=== PATIENT | male | born 1970 | race Caucasian/White ===

== ENCOUNTER 2017-10-25 15:04 | Emergency (ER) | payer BC, OTHER ==
[~2017-10-25 15:04] MED LIST: HYDROCODONE PO; Z.0.NO CURRENT MEDS
[2017-10-25] MEDS ORDERED: GADODIAMIDE PF 287 MG/ML 5 ML VIAL (for RAD MRI) IVCONTRAST ONE (15:05)
[2017-10-25 15:08] VITALS: BP 146/86; PULSE 65; RESP 15; TEMP 97.8; O2SAT 98
[2017-10-25 16:05] LABS: AUTOMATED NEUTROPHIL # 3.9 TH/MM3 (1.8-7.7); BASOPHIL % 0.5 % (0.0-2.0); EOSINOPHIL # 0.2 TH/MM3 (0-0.4); HEMATOCRIT 32.6 % (39.0-51.0); HEMOGLOBIN 11.6 GM/DL (13.0-17.0); LYMPH % 19.9 % (9.0-44.0); LYMPHOCYTE # 1.1 TH/MM3 (1.0-4.8); MEAN CELL VOLUME 96.3 FL (80.0-100.0); MEAN CORPUSCULAR HEMOGLOBIN 34.3 PG (27.0-34.0); MEAN CORPUSCULAR HGB CONC 35.6 % (32.0-36.0); MEAN PLATELET VOLUME 7.8 FL (7.0-11.0); MONOCYTE # 0.4 TH/MM3 (0-0.9); NEUT % 69.6 % (16.0-70.0); PLATELET COUNT 229 TH/MM3 (150-450); RED BLOOD COUNT 3.39 MIL/MM3 (4.50-5.90); RED CELL DISTRIBUTION WIDTH 12.2 % (11.6-17.2); WHITE BLOOD COUNT 5.6 TH/MM3 (4.0-11.0)
[2017-10-25 16:31] LABS: ALBUMIN 3.4 GM/DL (3.4-5.0); ALT (GPT) 23 U/L (12-78); AST (GOT) 34 U/L (15-37); BICARBONATE 27.1 MEQ/L (21.0-32.0); BLOOD UREA NITROGEN 11 MG/DL (7-18); CALCIUM 8.6 MG/DL (8.5-10.1); CHLORIDE 102 MEQ/L (98-107); CREATININE 0.82 MG/DL (0.60-1.30); GLOMERULAR FILTRATION RATE 101 ML/MIN (>89); GLUCOSE,RANDOM 103 MG/DL (74-106); SODIUM (NA) 135 MEQ/L (136-145)
[2017-10-25 16:33] LABS: ALKALINE PHOSPHATASE 59 U/L (45-117); TOTAL BILIRUBIN ADULT 0.7 MG/DL (0.2-1.0)
[2017-10-25 17:00] VITALS: BP 134/82; PULSE 62; RESP 16; O2SAT 98
--- NOTE | 2017-10-25 18:41 | RADRPT ---
EXAM DATE/TIME: 10/25/2017 18:03 [facility] COMPARISON: No previous studies available for comparison. INDICATIONS : Nerve disorder, tongue numb since shoulder surgery. MEDICAL HISTORY : None. SURGICAL HISTORY : Shoulder sx five days ago. ENCOUNTER: Initial ACUITY: 4-6 days PAIN SCORE: 3/10 LOCATION: tongue. TECHNIQUE: Multiplanar, multisequence MRI of the brain was performed without contrast. FINDINGS: CEREBRUM: The ventricles are normal for age. No evidence of midline shift, mass lesion, hemorrhage or acute in farction. No extraaxial fluid collections are seen. The pituitary gland and suprasellar cistern are normal in configuration. WHITE MATTER: No significant signal abnormalities are seen in the white matter. POSTERIOR FOSSA: The cerebellum and brainstem are intact. The 4th ventricle is midline. The cerebellopontine angle is unremarkable. The cerebellar tonsils are normal in position. DIFFUSION IMAGING: No focal areas of restricted diffusion are seen. No evidence of acute infarction. EXTRACRANIAL: The visualized portions of the orbits and paranasal sinuses are unremarkable. CONCLUSION: Normal examination. Wilian Gan MD on October 25, 2017 at 18:38 Board Certified Radiologist. This report was verified electronically.
--- NOTE | 2017-10-25 19:05 | RADRPT ---
EXAM DATE/TIME: 10/25/2017 18:03 [facility] COMPARISON: No previous studies available for comparison. INDICATIONS : Nerve disorder, tongue numb since shoulder surgery five days ago. MEDICAL HISTORY : None. SURGICAL HISTORY : Right shoulder sx. ENCOUNTER: Initial ACUITY: 4-6 days PAIN SCORE: 3/10 LOCATION: tongue. TECHNIQUE: Multiplanar, multisequence MRI examination of the cervical spine was performed. FINDINGS: VERTEBRAE: Normal vertebral body height. Homogeneous marrow signal. ALIGNMENT: No evidence of subluxation. CORD: Normal configuration and signal. POST FOSSA: The cerebellar tonsils are normal in position. C2-C3: The thecal sac has a normal configuration. There is no evidence of disc herniation or spinal canal s tenosis. The neural foramina are patent bilaterally. C3-C4: The thecal sac has a normal configuration. There is no evidence of disc herniation or spinal canal s tenosis. The neural foramina are patent bilaterally. C4-C5: The thecal sac has a normal configuration. There is no evidence of disc herniation or spinal canal s tenosis. The neural foramina are patent bilaterally. C5-C6: Broad mild dorsal disc protrusion mildly indenting thecal sac. Mild asymmetrically right-sided forami nal stenosis present. C6-C7: Small left paracentral disc protrusion slightly effacing left lateral recess. Canal and foramina sati sfactory. C7-T1: Bilateral uncovertebral osteophytic spurring producing bilateral foraminal stenosis, right worse than left. CONCLUSION: No acute bony findings. 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 This report was verified electronically.
--- NOTE | 2017-10-25 19:44 | PD ---
HPI Chief Complaint: Neuro Symptoms/ Deficits Time Seen by Provider: 15:18 Travel History International Travel<30 days: No Contact w/Intl Traveler<30days: No Traveled to known affect area: No History of Present Illness HPI Patient is a 47-year-old male who comes in complaining of inability to swallow and decreased taste to the left side of his tongue. He says this is been going on since he had shoulder replacement surgery last week. He says he had a nerve block at the time, and when he woke up from the surgery he told them he was having the symptoms and they told him it was likely secondary to the block and should wear off. He says it has not worn off since . He called his doctor who told him to come to the emergency department. He denies any other neurologic symptoms. He says he is able to swallow soft foods, but that is all. He denies any difficulty breathing. He has not taken anything for symptoms. Nothing seems to improve or worsen his symptoms. Severity is mild to moderate. PFSH Past Medical History Medical History: Denies Significant Hx Cancer: No Diabetes: No Diminished Hearing: No Hepatitis: No Hiatal Hernia: No Thyroid Disease: No Tetanus Vaccination: > 5 Years Influenza Vaccination: No Social History Alcohol Use: Yes ([facility]) Tobacco Use: No Substance Use: No Allergies-Medications (Allergen,Severity, Reaction): Coded Allergies: No Known Allergies (Unverified Adverse Reaction, Unknown, 10/25/17) Reported Meds & Prescriptions Reported Meds & Active Scripts Active Reported [Hydrocodone] 5 Mg PO Q4HPRN Review of Systems Except as stated in HPI: all other systems reviewed are Neg General / Constitutional: No: Fever, Chills Eyes: No: Blurred Vision HENT: No: Headaches, Lightheadedness Cardiovascular: No: Chest Pain or Discomfort Respiratory: No: Shortness of Breath Gastrointestinal: No: Nausea, Vomiting Musculoskeletal: No: Myalgias, Pain Skin: No Rash, No Change in Pigmentation Neurologic: No: Weakness, Dizziness Physical Exam Narrative GENERAL: Awake and alert, no acute distress. SKIN: Focused skin assessment warm/dry. No wounds or signs of infection. HEAD: Atraumatic. Normocephalic. EYES: Pupils equal and round. No scleral icterus. Extraocular movements intact. ENT: Mucous membranes pink and moist. Tongue is protruding to the left. NECK: Trachea midline. No JVD. CARDIOVASCULAR: Regular rate and rhythm. No murmur appreciated. RESPIRATORY: No accessory muscle use. Clear to auscultation. Breath sounds equal bilaterally. MUSCULOSKELETAL: No obvious deformities. No clubbing. No cyanosis. No edema. Sensation and strength intact on right hand. NEUROLOGICAL: Awake and alert. Motor grossly within normal limits. Normal speech. PSYCHIATRIC: Appropriate mood and affect; insight and judgment normal. Data Data Last Documented VS Orders Orders Iv Access Insert/Monitor (10/25/17 15:26) Complete Blood Count With Diff (10/25/17 15:26) Comprehensive Metabolic Panel (10/25/17 15:26) Mri C Spine W/O Contrast (10/25/17 ) Mri Brain W/O Contrast (10/25/17 ) Mri Brachial Plexus W&W/O Cont (10/25/17 ) Gadodiamide Pf Inj (Omniscan Pf Inj) (10/25/17 15:05) Shoulder, Limited(2vws) (10/25/17 ) Radiology Film Requests (10/26/17 ) Ed Discharge Order (10/26/17 00:23) Labs Laboratory Tests Test 10/25/17 15:20 White Blood Count 5.6 TH/MM3 Red Blood Count 3.39 MIL/MM3 Hemoglobin 11.6 GM/DL Hematocrit 32.6 % Mean Corpuscular Volume 96.3 FL Mean Corpuscular Hemoglobin 34.3 PG Mean Corpuscular Hemoglobin Concent 35.6 % Red Cell Distribution Width 12.2 % Platelet Count 229 TH/MM3 Mean Platelet Volume 7.8 FL Neutrophils (%) (Auto) 69.6 % Lymphocytes (%) (Auto) 19.9 % Monocytes (%) (Auto) 7.0 % Eosinophils (%) (Auto) 3.0 % Basophils (%) (Auto) 0.5 % Neutrophils # (Auto) 3.9 TH/MM3 Lymphocytes # (Auto) 1.1 TH/MM3 Monocytes # (Auto) 0.4 TH/MM3 Eosinophils # (Auto) 0.2 TH/MM3 Basophils # (Auto) 0.0 TH/MM3 CBC Comment DIFF FINAL Differential Comment Blood Urea Nitrogen 11 MG/DL Creatinine 0.82 MG/DL Random Glucose 103 MG/DL Total Protein 7.0 GM/DL Albumin 3.4 GM/DL Calcium Level 8.6 MG/DL Alkaline Phosphatase 59 U/L Aspartate Amino Transf (AST/SGOT) 34 U/L Alanine Aminotransferase (ALT/SGPT) 23 U/L Total Bilirubin 0.7 MG/DL Sodium Level 135 MEQ/L Potassium Level 3.9 MEQ/L Chloride Level 102 MEQ/L Carbon Dioxide Level 27.1 MEQ/L Anion Gap 6 MEQ/L Estimat Glomerular Filtration Rate 101 ML/MIN MDM Medical Decision Making Medical Screen Exam Complete: Yes Emergency Medical Condition: Yes Medical Record Reviewed: Yes Differential Diagnosis Brachial plexus injury versus cervical spine injury versus brain abnormality Narrative Course Patient is a 47-year-old male who comes in due to neurologic symptoms after shoulder surgery. Exam shows his tongue protruding to the left, he says he has difficulty swallowing. IV established, labs sent. Labs show no acute abnormalities. MRI of the brain and C-spine performed show no acute abnormalities. MRI of the brachial plexus performed. Patient signed out to Dr. Leos to follow-up results and disposition the patient. Zeina Andersen MD Oct 25, 2017 19:44
--- NOTE | 2017-10-25 21:42 | RADRPT ---
EXAM DATE/TIME: 10/25/2017 20:46 [facility] COMPARISON: No previous studies available for comparison. INDICATIONS : Evaluate right shoulder replacement. MEDICAL HISTORY : None. SURGICAL HISTORY : Right shoulder surgery. ENCOUNTER: Initial ACUITY: 3 days PAIN SCORE: 1/10 LOCATION: Right shoulder. FINDINGS: Total right shoulder arthroplasty is noted. Skin nic are present ventrally. There has been distal clavicular resection. The adjacent ribs. Tach. CONCLUSION: Recent shoulder surgery as above Wilian Gan MD on October 25, 2017 at 21:40 Board Certified Radiologist. This report was verified electronically.
--- NOTE | 2017-10-25 21:50 | PD ---
Physical Exam Narrative General: The patient is a well-developed well-nourished male in no acute distress. Head and Neck exam: Head is normocephalic atraumatic. Eyes: EOMI, pupils are equal round and reactive to light. Nose: Midline septum with pink mucous membranes Mouth: Dentition unremarkable. Moist mucus membranes. Posterior oropharynx is not erythematous. No tonsillar hypertrophy. Uvula midline. Airway patent. Patient's tongue deviates to the left. The patient reports having numbness to the left side of his tongue. No masses are visualized. No swelling underneath the tongue. Neck: No palpable lymphadenopathy. No nuchal rigidity. No thyromegaly. No tenderness on palpation of the submandibular area. Cardiovascular: Regular rate and rhythm without murmurs, gallops, or rubs. No pulse deficit to the extremities. Lungs: Clear to auscultation bilaterally. No wheezes, rhonchi, or rales. Abdomen: Soft, without tenderness to palpation in all 4 quadrants of the abdomen. No guarding, rebound, or rigidity. Negative [place] sign. Extremities: No clubbing, cyanosis, or edema. 2+ pulses in all 4 extremities. Back: No spinous process tenderness to palpation. No costovertebral angle tenderness to palpation. Neurologic Exam: Cranial nerves 2-12 were intact on exam. Strength is 5/5 in all 4 extremities. No sensory deficits noted. No dysdiadochokinesis. Good finger to nose and Heel to kim bilaterally. Skin Exam: No rash noted. Intact skin that is warm and dry. Data Data Last Documented VS Vital Signs Date Time Temp Pulse Resp B/P (MAP) Pulse Ox O2 Delivery O2 Flow Rate FiO2 10/25/17 17:00 62 16 134/82 (99) 98 Room Air 10/25/17 15:08 97.8 Orders Orders Iv Access Insert/Monitor (10/25/17 15:26) Complete Blood Count With Diff (10/25/17 15:26) Comprehensive Metabolic Panel (10/25/17 15:26) Mri C Spine W/O Contrast (10/25/17 ) Mri Brain W/O Contrast (10/25/17 ) Mri Brachial Plexus W&W/O Cont (10/25/17 ) Gadodiamide Pf Inj (Omniscan Pf Inj) (10/25/17 15:05) Shoulder, Limited(2vws) (10/25/17 ) Radiology Film Requests (10/26/17 ) Labs Laboratory Tests Test 10/25/17 15:20 White Blood Count 5.6 TH/MM3 Red Blood Count 3.39 MIL/MM3 Hemoglobin 11.6 GM/DL Hematocrit 32.6 % Mean Corpuscular Volume 96.3 FL Mean Corpuscular Hemoglobin 34.3 PG Mean Corpuscular Hemoglobin Concent 35.6 % Red Cell Distribution Width 12.2 % Platelet Count 229 TH/MM3 Mean Platelet Volume 7.8 FL Neutrophils (%) (Auto) 69.6 % Lymphocytes (%) (Auto) 19.9 % Monocytes (%) (Auto) 7.0 % Eosinophils (%) (Auto) 3.0 % Basophils (%) (Auto) 0.5 % Neutrophils # (Auto) 3.9 TH/MM3 Lymphocytes # (Auto) 1.1 TH/MM3 Monocytes # (Auto) 0.4 TH/MM3 Eosinophils # (Auto) 0.2 TH/MM3 Basophils # (Auto) 0.0 TH/MM3 CBC Comment DIFF FINAL Differential Comment Blood Urea Nitrogen 11 MG/DL Creatinine 0.82 MG/DL Random Glucose 103 MG/DL Total Protein 7.0 GM/DL Albumin 3.4 GM/DL Calcium Level 8.6 MG/DL Alkaline Phosphatase 59 U/L Aspartate Amino Transf (AST/SGOT) 34 U/L Alanine Aminotransferase (ALT/SGPT) 23 U/L Total Bilirubin 0.7 MG/DL Sodium Level 135 MEQ/L Potassium Level 3.9 MEQ/L Chloride Level 102 MEQ/L Carbon Dioxide Level 27.1 MEQ/L Anion Gap 6 MEQ/L Estimat Glomerular Filtration Rate 101 ML/MIN [facility] Medical Record Reviewed: Yes Supervised Visit with JEFF: No Interpretation(s) Last Impressions Shoulder X-Ray 10/25/17 0000 Signed Impressions: Service Date/Time: Wednesday, October 25, 2017 20:46 - CONCLUSION: Recent shoulder surgery as above Wilian Gan MD Cervical Spine MRI 10/25/17 0000 Signed Impressions: Service Date/Time: Wednesday, October 25, 2017 18:03 - CONCLUSION: No acute bony findings. Disc protrusions and bony spondylosis in the lower cervical spine with multilevel foraminal stenoses as described Wilian Gan MD Brain MRI 10/25/17 0000 Signed Impressions: Service Date/Time: Wednesday, October 25, 2017 18:03 - CONCLUSION: Normal examination. Wilian Gan MD Brachial Plexus MRI 10/25/17 0000 Signed Impressions: Service Date/Time: Wednesday, October 25, 2017 18:03 - CONCLUSION: Tissue asymmetry in the tongue base region. Left submandibular region asymmetry or mass. Recommend further evaluation with soft tissue CT examination of the neck with contrast on an elective basis. Wilian Gan MD Narrative Course During the course of the patient's emergency department visit, the patient's history, examination, and differential diagnosis were reviewed with the patient. The patient was placed on a senior relationship manager with oximetry and frequent blood pressure monitoring. The patient had IV access obtained and blood work sent for analysis. The patient's case was checked out to me by Dr. Andersen. Please see her complete history and physical. The patient's case was checked out to me at the conclusion of her shift pending an MRI of the brachial plexus. The patient presented with a recent history of shoulder replacement on at the [facility]. The patient underwent a cervical block for the procedure. The patient reported after the procedure noticing decreased taste, and difficulty swallowing hard foods. The patient is able to swallow his own secretions and swallow soft foods as well as liquids without coughing or choking. The patient was initially provided [-]. The patient's laboratory studies were reviewed and remarkable for [-]. Radiology studies were reviewed and remarkable for a shoulder x-ray that shows postoperative changes, no other acute abnormality. MRI of the brain shows a normal examination. MRI of the C-spine shows no acute bony findings, disc protrusions and bony spondylosis in the lower cervical spine with multilevel foraminal stenosis is noted. MRI of the brachial plexus reveals tissue asymmetry in the tongue base region. Left submandibular region asymmetry or mass. Recommend further evaluation with soft tissue CT examination of the neck with contrast on an elective basis. I discussed the patient's case further with him. The patient will be given an outpatient lab slip for a CT scan of the soft tissues of the neck with contrast to further evaluate the findings. A call has been placed out to the patient's surgeon at the [facility], Dr. Mccrary. The covering physician that will be calling back is Dr. Andrade. After all, I was connected with the patient's actual surgeon, , at approximately 12:10 AM. The patient's findings including examination findings, history, radiology were discussed with his physician. He recommended close follow-up as an outpatient. The patient is instructed that if he develops any worsening symptoms including coughing or choking with eating, difficulty swallowing his own secretions or soft foods, he should return back immediately. The patient is instructed to call his surgeon's office number in the morning to schedule a sooner follow-up appointment. The patient is resting comfortably and feels better, is alert and in no distress. The patient's results and examination findings were discussed with the patient. The repeat examination is unremarkable and benign. The history, exam, diagnostic testing, and current condition do not suggest any significant pathology to warrant further testing, continued ED treatment, admission, or surgical evaluation at this point. The vital signs have been stable. The patient does not have uncontrollable pain, intractable vomiting, or other significant symptoms. The patient's condition is stable and appropriate for discharge. The patient will pursue further outpatient evaluation with a primary care physician or other designated or consulting physician as indicated in the discharge instructions. The patient expressed understanding and was agreeable with this plan. Physician Communication Physician Communication The patient's case including history, pertinent physical examination findings, and laboratory studies were discussed with Dr. Mccrary, at 12:05AM. It was agreed that the patient will call his office in the morning for a sooner postoperative appointment. He agreed with the plan to have the CT scan of the soft tissues of the neck with contrast done as an outpatient. The patient will be given a copy of his images on CD to bring to his next office appointment along with his radiologic reports. Diagnosis Primary Impression: Numbness of tongue Additional Impression: Mass of left submandibular region Referrals: Orthopaedic Surgeon 1 day Patient Instructions: General Instructions Additional Instruction: The patient's case including history, pertinent physical examination findings, and laboratory studies were discussed with Dr. Mccrary, at 12:05AM. It was agreed that the patient will call his office in the morning for a sooner postoperative appointment. He agreed with the plan to have the CT scan of the soft tissues of the neck with contrast done as an outpatient. The patient will be given a copy of his images on CD to bring to his next office appointment along with his radiologic reports. Med/Other Pt SpecificInfo: No Change to Meds Disposition: 01 DISCHARGE HOME Condition: Stable Brenda Leos MD Oct 25, 2017 21:50
--- NOTE | 2017-10-25 22:54 | RADRPT ---
EXAM DATE/TIME: 10/25/2017 18:03 [facility] COMPARISON: No previous studies available for comparison. INDICATIONS : Nerve disorder, tongue numb since shoulder surgery five days ago. CONTRAST: 17 cc Omniscan (gadodiamide) IV MEDICAL HISTORY : None. SURGICAL HISTORY : Shoulder sx five days ago. ENCOUNTER: Initial ACUITY: 1 day PAIN SCORE: 3/10 LOCATION: Right shoulder TECHNIQUE: Multiplanar, multisequence MRI examination of the brachial plexus was performed without contrast and after intravenous administration of gadolinium. FINDINGS: There are postoperative changes in the right shoulder. There is no definite mass or collection along the course of the brachial plexus on the right. There appears to be asymmetry and prominent mucosal enhancement in the tongue base region. An asymmet melissa enhancing mass in the submandibular region on the left. CONCLUSION: Tissue asymmetry in the tongue base region. Left submandibular region asymmetry or mass. Recommend fu rther evaluation with soft tissue CT examination of the neck with contrast on an elective basis. Wilian Gan MD on October 25, 2017 at 22:40 Board Certified Radiologist. This report was verified electronically.
== END 2017-10-26 00:54 | disposition home or self-care (01) ==
LOC: NEPE 15:04
DX: R20.0 Anesthesia of skin (principal); R22.1 Localized swelling, mass and lump, neck; R13.10 Dysphagia, unspecified; Z98.890 Other specified postprocedural states
CPT/HCPCS: 70551; 72141; 73030; 73220; 80053; 85025; 99285; A9579